=== PATIENT | male | born 1970 | race Caucasian/White ===

== ENCOUNTER 2017-07-24 09:43 | Emergency (ER) | payer SELFPAY ==
[2017-07-24 10:23] LABS: BASOPHILS # (AUTO) 0.1 10^3/uL (0.0-0.1); BASOPHILS % (AUTO) 0.8 %; EOSINOPHILS # (AUTO) 0.1 10^3/uL (0.0-0.7); EOSINOPHILS % (AUTO) 1.7 %; HCT - HEMATOCRIT 44.9 % (42.0-52.0); HGB - HEMOGLOBIN 15.2 g/dL (14.0-18.0); LYMPHOCYTES # (AUTO) 1.9 10^3/uL (1.5-3.5); MEAN CORPUSCULAR HEMOGLOBIN 29.8 pg (27.0-31.0); MEAN CORPUSCULAR HGB CONC 33.8 g/dL (32.0-36.0); MEAN CORPUSCULAR VOLUME 88.3 fL (80.0-94.0); MEAN PLATELET VOLUME 8.1 fL (7.4-11.4); MONOCYTES # (AUTO) 0.7 10^3/uL (0.0-1.0); MONOCYTES % (AUTO) 8.7 %; NEUTROPHILS # (AUTO) 5.1 10^3/uL (1.5-6.6); NEUTROPHILS % (AUTO) 64.8 %; NUCLEATED RED BLOOD CELLS AUTO 0.1 /100WBC; RED BLOOD COUNT 5.08 10^6/uL (4.70-6.10); RED CELL DISTRIBUTION WIDTH 14.5 % (12.0-15.0); UNCORRECTED WHITE BLOOD COUNT 7.9 x10^3/uL; WHITE BLOOD COUNT 7.9 x10^3/uL (4.8-10.8)
[2017-07-24 10:39] LABS: ALBUMIN/GLOBULIN RATIO 1.7 (1.0-2.2); BILIRUBIN,TOTAL 0.6 mg/dL (0.2-1.0); CALCIUM 8.9 mg/dL (8.5-10.3); CREATININE 0.9 mg/dL (0.6-1.2); TOTAL PROTEIN 6.5 g/dL (6.7-8.2)
[2017-07-24] MEDS ORDERED: IOPAMIDOL-300 100 ML VIAL IVP ONE (11:02)
--- NOTE | 2017-07-24 11:27 | CT Preliminary Report ---
Exam: CT Abdomen/Pelvis W/ IMPRESSION: 1. Normal retrocecal appendix. No bowel obstruction. No inguinal hernia or lymphadenopathy. 2. Colonic diverticulosis most notable through the sigmoid, without signs of acute diverticulitis. Li mited colonic detail due to luminal contraction. Liquid and semisolid fecal contents in the distal co myra and rectum. 3. No ductal dilatation postcholecystectomy. 4. A 3.7 cm left renal cyst. 5. Several tiny cysts and/or hemangiomas in the liver. [facility] SITE ID: [id number]
--- NOTE | 2017-07-24 11:30 | CT Report ---
EXAM: CT ABDOMEN AND PELVIS EXAM DATE: 07/24/2017 10:38 AM. CLINICAL HISTORY: RLQ/inguinal pain. COMPARISONS: None. TECHNIQUE: Routine helical CT imaging was performed through the abdomen and pelvis. IV contrast: 100 cc Isovue-300. Enteric contrast: No. Reconstructions: Coronal and sagittal. In accordance with CT protocol optimization, one or more of the following dose reduction techniques w ere utilized for this exam: automated exposure control, adjustment of mA and/or KV based on patient s ize, or use of iterative reconstructive technique. FINDINGS: Lung Bases: Clear. Liver: Few small hypodensities in right and left lobes, largest 1.2 cm in segment 2, likely cysts or hemangiomas. No obviously suspicious lesion. Patent vasculature. Gallbladder/Bile Ducts: No ductal dilatation postcholecystectomy. Spleen: No splenomegaly. Pancreas: Unremarkable. Adrenal Glands: No nodule. Kidneys: No hydronephrosis or stones. A midpole left renal cyst measures 3.7 x 2.9 cm. Normal bilater al parenchymal enhancement. No perinephric fat stranding. Peritoneal Cavity/Bowel: Normal retrocecal appendix. No dilatation of the nonopacified bowel. Limited detail of the variably contracted colon. Colonic diverticulosis, more prominent and moderate through the sigmoid. No pericolonic phlegmon to suggest acute diverticulitis. Moderate liquid and semisolid fecal debris in the rectosigmoid colon without pericolonic infiltration. No free fluid, free air, or abscess. Possible small hiatus hernia. No mesenteric adenopathy. Retroperitoneum: No mass or lymphadenopathy. Pelvic Organs: Unremarkable bladder. Other pelvic organs unremarkable. No inguinal hernia or lymphade nopathy. Vasculature: No aneurysms or other significant abnormality. Bones: No significant abnormality. IMPRESSION: 1. Normal retrocecal appendix. No bowel obstruction. No inguinal hernia or lymphadenopathy. 2. Colonic diverticulosis most notable through the sigmoid, without signs of acute diverticulitis. Li mited colonic detail due to luminal contraction. Liquid and semisolid fecal contents in the distal co myra and rectum. 3. No ductal dilatation postcholecystectomy. 4. A 3.7 cm left renal cyst. 5. Several tiny cysts and/or hemangiomas in the liver. [facility] Referring Provider Line: [phone] SITE ID: [id number]
--- NOTE | 2017-07-24 11:32 | ED Physician Documentation ---
PD HPI ABD PAIN - Stated complaint Stated Complaint: ABD PX - Chief complaint Chief Complaint: Abd Pain - History obtained from History obtained from: Patient - History of Present Illness Timing - onset: How many weeks ago (1.5) Timing - details: Waxing and waning Location: RLQ Radiation: Right flank Worsened by: Moving Associated symptoms: No: Fever, Nausea, Vomiting, Diarrhea, Dysuria, Testicular pain Similar symptoms before: Has not had sx before Review of Systems Constitutional: denies: Fever Nose: denies: Congestion Throat: denies: Sore throat Cardiac: denies: Chest pain / pressure Respiratory: denies: Dyspnea, Cough GI: reports: Abdominal Pain. denies: Nausea, Vomiting, Diarrhea : denies: Dysuria, Frequency, Testicular pain Skin: denies: Rash Musculoskeletal: denies: Back pain, Extremity pain Neurologic: denies: Focal weakness, Numbness, Headache PD PAST MEDICAL HISTORY - Past Medical History Past Medical History: No Cardiovascular: None Respiratory: None Neuro: None Endocrine/Autoimmune: None GI: None : None HEENT: None Psych: None Musculoskeletal: None Derm: None - Past Surgical History Past Surgical History: Yes General: Cholecystectomy, Other (Right inguinal hernia repair) - Allergies Allergies/Adverse Reactions: Allergies Allergy/AdvReac Type Severity Reaction Status Date / Time No Known Drug Allergies Allergy Verified 07/24/17 09:52 - Social History Does the pt smoke?: Yes Smoking Status: Current every day smoker Does the pt drink ETOH?: Yes Does the pt have substance abuse?: No - Immunizations Immunizations are current?: No - POLST Patient has POLST: No PD ED PE NORMAL - Vitals Vital signs reviewed: Yes (borderline hypertension initially.) - General General: Alert and oriented X 3, Well developed/nourished - HEENT HEENT: Atraumatic, EOMI, Pharynx benign - Neck Neck: No adenopathy, No JVD - Cardiac Cardiac: RRR, No murmur - Respiratory Respiratory: No respiratory distress, Clear bilaterally - Abdomen Abdomen: Normal bowel sounds, Soft, Non distended, No organomegaly, Other ( There is mild tenderness to palpation of the right mid to lower abdomen, without rebound tenderness or guarding.) - Back Back: No CVA TTP - Derm Derm: No rash - Extremities Extremities: No edema, No calf tenderness / cord - Neuro Neuro: Alert and oriented X 3, No motor deficit, Normal speech Results - Vitals Vitals: Oxygen O2 Source Room air - Labs Labs: Laboratory Tests 07/24/17 07/24/17 07/24/17 10:15 10:15 11:40 WBC 7.9 RBC 5.08 Hgb 15.2 Hct 44.9 MCV 88.3 MCH 29.8 MCHC 33.8 RDW 14.5 Plt Count 215 MPV 8.1 Neut # 5.1 Lymph # 1.9 Sampson # 0.7 Eos # 0.1 Baso # 0.1 Absolute Nucleated RBC 0.01 Nucleated RBCs 0.1 Sodium 139 Potassium 4.0 Chloride 107 Carbon Dioxide 26 Anion Gap 6.0 BUN 17 Creatinine 0.9 Estimated GFR (MDRD) 90 Glucose 115 H Calcium 8.9 Total Bilirubin 0.6 AST 25 ALT 22 Alkaline Phosphatase 55 Total Protein 6.5 L Albumin 4.1 Globulin 2.4 Albumin/Globulin Ratio 1.7 Lipase 29 Urine Color YELLOW Urine Clarity CLEAR Urine pH 6.5 Ur Specific Platter 1.010 Urine Protein NEGATIVE Urine Glucose (UA) NEGATIVE Urine Ketones NEGATIVE Urine Occult Blood NEGATIVE Urine Nitrite NEGATIVE Urine Bilirubin NEGATIVE Urine Urobilinogen 0.2 (NORMAL) Ur Leukocyte Esterase NEGATIVE Ur Microscopic Review NOT INDICATED Urine Culture Comments NOT INDICATED - Rads (name of study) CT abd/pelvis with IV contrast Radiology: Prelim report reviewed, EMP read contemporaneously, See rad report (1 ) Normal retrocecal appendix. No bowel obstruction. No inguinal hernia or lymphadenopathy. 2) Colonic diverticulosis most notable through the sigmoid, without signs of acute diverticulitis. Limited colonic detail due to luminal contraction. Liquid and semisolid fecal contents in the distal colon and rectum. 3) No ductal dilatation postcholecystectomy. 4) A 3.7 cm left renal cyst. 5) Several tiny cysts and/or hemangiomas of the liver.) PD MEDICAL DECISION MAKING - ED course Complexity details: reviewed results, re-evaluated patient, considered differential, d/w patient, d/w family ED course: The underlying cause of the patient's right-sided abdominal pain is not clearly understood at this time. CBC, chemistry panel, and urinalysis are all completely normal. CT scan of the abdomen and pelvis with IV contrast reveals a normal retrocecal appendix, and no other finding to explain the patient's symptoms. There is an incidental finding of a 3.7 cm left renal cyst, which is not the cause of the patient's current symptoms. I discussed with him and his the results of the workup, the importance of outpatient follow-up, as well as potentially worrisome signs or symptoms that should prompt reevaluation in the emergency department. A copy of his CT scan was burned to a disc and given to him to take to his primary physician. Departure - Departure Disposition: 01 Home, Self Care Clinical Impression: Cyst of left kidney Abdominal pain Qualifiers: Abdominal location: right lower quadrant Qualified Code(s): R10.31 - Right lower quadrant pain Condition: Stable Instructions: ED Abdominal Pain Unkn Cause Comments: Drink plenty of fluids. He can use Tylenol or ibuprofen if needed for discomfort. Follow-up with primary physician. Call for next available appointment. Return to the emergency department if you develop increasing abdominal pain, fever, persistent vomiting, or otherwise worsening symptoms. Discharge Date/Time: 07/24/17 12:53
[2017-07-24 11:50] LABS: BILIRUBIN,URINE NEGATIVE (NEGATIVE); PH,URINE 6.5 PH (5.0-7.5)
[2017-07-24 12:03] LABS: UA CHARGE (STRIP ONLY) YES; UR CULTURE IF IND NOT INDICATED
[2017-07-24 12:54] VITALS: BP 114/86
== END 2017-07-24 12:53 | disposition home or self-care (01) ==
LOC: ED 09:43
DX: R10.31 Right lower quadrant pain (principal); F17.200 Nicotine dependence, unspecified, uncomplicated
CPT/HCPCS: 36415; 74177; 80053; 81003; 83690; 85025; 99283; 99284; Q9967; 81001; 87086

== ENCOUNTER 2025-03-24 00:31 | Observation (INO) ==
--- NOTE | 2025-03-24 00:51 | ED Physician Documentation ---
PD HPI DYSPNEA Stated complaint Stated Complaint: SOA Chief complaint Chief Complaint: Resp History obtained from History obtained from: Patient History of Present Illness Timing - onset: How many days ago (2) Timing - details: Gradual onset Worsened by: Coughing Associated symptoms: Fever (low grade to 100 per patient), Cough and Wheezing; No Hemoptysis, Diaphoresis, Bilateral edema or Unilateral edema Similar symptoms before: Treatment (prn albuterol) Additional information Additional information: Pleasant 54-year-old gentleman with history of mild intermittent asthma. Has been feeling sick for 2 days with cough, wheezing, states that initially "started in my head and outs down to my lungs. Is feeling quite short of breath tonight. Cough has been conductive of some clear and yellow sputum. No hemoptysis. No chest pain. Has had a couple episodes of posttussive emesis otherwise no vomiting or diarrhea. No known sick contacts. No skin rashes. Review of Systems Constitutional Reports: Fever Cardiovascular Reports: shortness of breath with exertion; Denies: Irregular heart rate, chest pain, palpitations, edema, swelling of feet/ankles or Syncope Respiratory Reports: Shortness of breath, Cough, Wheezing, SOB at rest and SOB with exertion Gastrointestinal Denies: Abdominal pain or Nausea Integumentary/Breast Denies: Rash Neurological Denies: Headache Allergic/Immunologic Reports: Wheezing Meds/Allgy Allergies Allergies Allergy/AdvReac Type Severity Reaction Status Date / Time No Known Drug Allergies Allergy Verified 07/24/17 09:52 [facility] Active Problems All Active Problems (Updated 03/24/25 @ 02:52 by Chris Villa MD) Upper respiratory tract infection (Acute) Respiratory failure (Acute) Asthma (Acute) Medical History Medical History (Updated 03/24/25 @ 02:52 by Chris Villa MD) Asthma Surgical History Surgical History (Updated 03/24/25 @ 00:46 by Piper Plascencia RN) History of hernia repair History of cholecystectomy Social History Social History (Updated 03/24/25 @ 00:46 by Piper Plascencia RN) Smoking Status: Current every day smoker How many cigarettes a day do you smoke? (20 cigarettes=1 Pk): 20 Relationship: Do you feel safe in your home environment?: Yes Suffered physical, verbal, emotional, or financial abuse?: No History of Abuse: No Frequency: Daily Substance Use: denies use POLST Patient has POLST: No Exam Exam Vital Signs: Vital Signs x48h Temp Pulse Resp BP Pulse Ox O2 Flow Rate 03/24/25 05:00 114 H 22 118/67 96 4 03/24/25 04:30 124 H 22 101/83 94 4 03/24/25 04:00 110 H 22 105/77 96 03/24/25 03:38 115 H 20 4 03/24/25 03:02 115 H 28 H 131/85 H 94 4 03/24/25 02:45 95 4 03/24/25 02:44 90 L 1 03/24/25 02:10 95 1 03/24/25 02:09 78 L 1 03/24/25 02:04 115 H 22 98 1 03/24/25 01:43 119 H 24 152/89 H 95 1 03/24/25 01:37 124 H 30 H 126/82 88 L 03/24/25 01:15 115 H 20 99/75 97 6 03/24/25 01:00 113 H 20 101/73 94 2 03/24/25 00:59 119 H 20 2 03/24/25 00:56 106 H 20 92/68 94 2 03/24/25 00:50 88 L 03/24/25 00:48 2 03/24/25 00:41 36.7 C 118 H 26 H 158/81 H 93 Awake and alert, mild dyspnea HENMT normocephalic Eyes PERRL Neck/C-Spine visual inspection normal Respiratory no rales and no retractions Prolonged expiratory phase. Diffuse wheezes in all [place]. No rhonchi Cardiovascular normal heart rate noted, regular rhythm noted, no gallop and no murmur Gastrointestinal abdomen soft to palpation, nontender to palpation and nondistended Extremities normal to inspection Neurology no focal motor deficit noted Psychiatry Mental Status Exam documented in the separate MSE Skin skin color normal and no rash Results Vitals Vitals: Vital Signs - 24 hr 03/24/25 00:41 03/24/25 00:48 03/24/25 00:50 Temperature 36.7 C Temperature Source Temporal Artery Scan Pulse Rate 118 H Respiratory Rate 26 H Blood Pressure 158/81 H O2 Saturation 93 88 L Oxygen Delivery Method Nasal Cannula O2 Source Room air Room air If not protocol: Oxygen Flow, liters/minute 2 Pain Intensity 0 03/24/25 00:56 03/24/25 00:59 04/25/25 01:00 Temperature Temperature Source Pulse Rate 106 H 119 H 113 H Respiratory Rate 20 20 20 Blood Pressure 92/68 101/73 O2 Saturation 94 94 Oxygen Delivery Method O2 Source Nasal cannula Nasal cannula Nasal cannula If not protocol: Oxygen Flow, liters/minute 2 2 2 Pain Intensity 03/24/25 01:15 03/24/25 01:37 03/24/25 01:43 Temperature Temperature Source Pulse Rate 115 H 124 H 119 H Respiratory Rate 20 30 H 24 Blood Pressure 99/75 126/82 152/89 H O2 Saturation 97 88 L 95 Oxygen Delivery Method O2 Source Room air Nasal cannula If not protocol: Oxygen Flow, liters/minute 6 1 Pain Intensity 03/24/25 02:04 03/24/25 02:09 03/24/25 02:10 Temperature Temperature Source Pulse Rate 115 H Respiratory Rate 22 Blood Pressure O2 Saturation 98 78 L 95 Oxygen Delivery Method O2 Source Nasal cannula Nasal cannula Nasal cannula If not protocol: Oxygen Flow, liters/minute 1 1 1 Pain Intensity 03/24/25 02:44 03/24/25 02:45 03/24/25 03:02 Temperature Temperature Source Pulse Rate 115 H Respiratory Rate 28 H Blood Pressure 131/85 H O2 Saturation 90 L 95 94 Oxygen Delivery Method O2 Source Nasal cannula Nasal cannula Nasal cannula If not protocol: Oxygen Flow, liters/minute 1 4 4 Pain Intensity 03/24/25 03:38 03/24/25 04:00 03/24/25 04:30 Temperature Temperature Source Pulse Rate 115 H 110 H 124 H Respiratory Rate 20 22 22 Blood Pressure 105/77 101/83 O2 Saturation 96 94 Oxygen Delivery Method O2 Source Nasal cannula Nasal cannula If not protocol: Oxygen Flow, liters/minute 4 4 Pain Intensity 03/24/25 05:00 Temperature Temperature Source Pulse Rate 114 H Respiratory Rate 22 Blood Pressure 118/67 O2 Saturation 96 Oxygen Delivery Method O2 Source Nasal cannula If not protocol: Oxygen Flow, liters/minute 4 Pain Intensity Oxygen O2 Source Nasal cannula EKG (time done) 0037: EKG releavant findings:: EKG personally interpreted by author of this note. Relevant findings are: Rate: Rate (enter#) Rhythm: Sinus tachycardia Stanley: Normal Intervals: Normal TN QRS: QRS normal Ischemia: Normal ST segments Compare to prior EKG: Old EKG unavailable Computer interpretation: Agree with computer Labs Labs: Laboratory Tests 03/24/25 03/24/25 00:40 00:49 WBC 15.3 H RBC 4.88 Hgb 14.3 Hct 43.8 MCV 89.8 MCH 29.3 MCHC 32.6 RDW 14.2 Plt Count 269 MPV 10.1 Neut # (Auto) 13.3 H Lymph # (Auto) 1.0 L [place] # (Auto) 1.0 Eos # (Auto) 0.0 Baso # (Auto) 0.0 Absolute Nucleated RBC 0.00 Nucleated RBC % 0.0 Sodium 137 Potassium 3.6 Chloride 101 Carbon Dioxide 28 Anion Gap 8.0 BUN 11 Creatinine 1.0 Estimated GFR (MDRD) 78 L Glucose 122 H Calcium 9.1 Troponin I High Sens 5.1 Nasal Influenza B PCR NOT DETECTED Nasal Influenza A PCR NOT DETECTED Nasal RSV (PCR) NOT DETECTED Nasal SARS-CoV-2 (PCR) NOT DETECTED PD Medical Decision Making ED course ED course: 0145: Patient is little bit tachycardic after nebs. Significantly improved aeration and decreased wheezing. Now satting 94% on room air. Feels a little bit better. 0325 Wheezing and tight again, increasing oxygen requirement. Additional nebs ordered. Medical decision making: Patient presents with acute dyspnea wheezing shortness of breath and hypoxic respiratory failure. He is requiring small amount of supplemental oxygen which is certainly new for him. He is on a inhaler long- term but not long-term steroids. I think most likely this is some underlying significant asthma which has been undertreated in the past. Appears to be exacerbated by either environmental allergies or viral URI. No evidence of pneumonia, pneumothorax, or heart failure. Because of his persistent oxygen requirement he will require admission. No beds available at this time, patient is signed out to the [facility] provider awaiting bed availability and ongoing treatment. Hopefully within 12 to 18 hours of receiving steroids these will start to have a significant effect and likely his wheezing will decrease and oxygenation will improve. Critical Care Critical Care Provided: Yes Time(min): 50 Comments: Time spend managing severe asthma with acute hypoxic resp failure requiring repeated evaluations and medication management Time Includes: Direct patient care, Reassess patient and See progress note Data interpretation: Labs, Pulse ox, ABG and CXR Discharge Plan Discharge Clinical Impression: Asthma, Respiratory failure, Upper respiratory tract infection Print Language: [place] Stand Alone Forms: PCP List Asthma Results (Adult) Results RESP.RESAS: Chest X-Ray
[2025-03-24 00:58] LABS: BASOPHILS % (AUTO) 0.2 %; EOSINOPHILS % (AUTO) 0.1 %; HCT - HEMATOCRIT 43.8 % (42.0-52.0); HGB - HEMOGLOBIN 14.3 g/dL (14.0-18.0); LYMPHOCYTES % (AUTO) 6.3 %; MEAN CORPUSCULAR HEMOGLOBIN 29.3 pg (27.0-31.0); MEAN CORPUSCULAR HGB CONC 32.6 g/dL (32.0-36.0); MEAN CORPUSCULAR VOLUME 89.8 fL (80.0-94.0); MEAN PLATELET VOLUME 10.1 fL (7.4-11.4); MONOCYTES % (AUTO) 6.4 %; NEUTROPHILS # (AUTO) 13.3 10^3/uL (1.5-6.6); NEUTROPHILS % (AUTO) 86.6 %; PLT - PLATELET COUNT 269 10^3/uL (130-450); RED BLOOD COUNT 4.88 10^6/uL (4.70-6.10); RED CELL DISTRIBUTION WIDTH 14.2 % (12.0-15.0); WHITE BLOOD COUNT 15.3 x10^3/uL (4.8-10.8)
[2025-03-24] MEDS: IPRATROPIUM/ALBUTEROL 3 ML NEB INH STA (00:59)
[2025-03-24] MEDS: ALBUTEROL NEB 2.5 MG/3 ML INH STA (00:59)
--- NOTE | 2025-03-24 00:59 | XRAY Report ---
PROCEDURE: XR Chest 1V INDICATIONS: SOB, wheeze, cough TECHNIQUE: One view of the chest was acquired. COMPARISON: None. FINDINGS: Surgical changes and devices: None. Lungs and pleura: Peribronchial cuffing. No effusions or pneumothorax. No consolidation. Mediastinum: Mediastinal contours appear normal. Heart size is normal. Bones and chest wall: No suspicious bony lesions. Overlying soft tissues appear unremarkable. IMPRESSION: Peribronchial cuffing, suggestive of infectious or inflammatory bronchitis. Reviewed by: Jaime Hooker MD on 03/24/2025 12:58 AM PDT Approved by: Jaime Hooker MD on 03/24/2025 12:58 AM PDT Station ID: [id number]
[2025-03-24] MEDS: predniSONE 20 MG TABLET PO STA (01:05)
[2025-03-24 01:12] LABS: CALCIUM 9.1 mg/dL (8.5-10.3); POTASSIUM 3.6 mmol/L (3.5-4.5)
[2025-03-24] MEDS: BUDESONIDE 0.5 MG/2 ML NEB INH STA (01:17)
[2025-03-24] MEDS: SODIUM CHLORIDE 0.9% 1,000 ML IV ONE (01:31)
[2025-03-24 01:54] LABS: INFLUENZA A- RESP PCR PANEL NOT DETECTED; INFLUENZA B - RESP PCR PANEL NOT DETECTED; RSV- RESP PCR PANEL NOT DETECTED; SARS-CoV-2 -RESP PCR PANEL NOT DETECTED
[2025-03-24] MEDS: MAGNESIUM SULFATE 2 GRAM 2 GM/50 ML BAG IV ONE (02:38)
[2025-03-24] MEDS: ALBUTEROL NEB 2.5 MG/3 ML INH SCH ×2 (03:38→09:35)
[2025-03-24] MEDS: ALPRAZolam 0.25 MG TABLET PO STA (05:30)
[2025-03-24] MEDS ORDERED: BUDESONIDE 0.5 MG/2 ML NEB INH SCH (07:00)
[2025-03-24] MEDS ORDERED: ALBUTEROL NEB 2.5 MG/3 ML INH SCH (09:00)
[2025-03-24] MEDS: dexAMETHasone 4 MG TABLET PO STA (09:16)
--- NOTE | 2025-03-24 15:26 | ED Physician Documentation ---
ED Addendum Addendum Addendum: Hide assumed care on the patient after change of shift. We have been checking in on him periodically through the morning and into the afternoon. He is breathing has been fairly unlabored. However his O2 sats are still running just under 90% on room air. Hope then he would be improving enough for discharge but he is not normally on oxygen and typically has reasonably controlled asthma. He does have a flulike illness. His respiratory panel was limited to COVID flu and RSV that were negative. Chest x-ray does not show any signs of pneumonia. However he still has moderate wheezing. He is had several nebulizers. He was given nebulizer treatment every 4 hours at change of shift and again just a little bit ago around lunchtime and is due for another in the next hour or so. He had been getting steroids with a repeat dose this morning. Given his still persisting hypoxia and wheezing, it was feeling prudent to have the patient in the hospital for further care. I talked with the hospitalist and we are awaiting bed availability. The patient is still boarding here in the ER at this point and may end up finishing his course here if he improves again or still better through the day or into tomorrow. Since this is a an acute illness with hypoxia, a felt it appropriate to have him here working on the problem rather than just trying to set up home oxygen. He does not have nebulizers at [facility]. At this point we would anticipate observation in the hospital or here in the ER with continued steroids, nebulizers, oxygen and p.o. hydration. Discharge Plan Discharge Patient Disposition: ED Place in Observation Clinical Impression: Asthma, Respiratory failure, Upper respiratory tract infection Prescriptions: No Action No Known Home Medications Print Language: [place] Stand Alone Forms: PCP List
--- NOTE | 2025-03-24 16:27 | HISTORY & PHYSICAL EXAMINATION ---
Chief Complaint Chief Complaint Chief Complaint: Dyspnea History of Present Illness Admitted From Admitted From:: Home History Obtained From History obtained from: Patient interview History of Present Illness HPI Comment/Other: 54-year-old male H significant for asthma only on rescue albuterol presents to the ED with shortness of breath for the past 2 days as well as low-grade fever and productive cough. He was seen early this morning in the ER, and held there in observation due to lack of bed availability. In the ER, chest x-ray was performed which showed peribronchial cuffing suggesting infectious versus inflammatory bronchitis. He was given multiple doses of steroids and nebulizers. He still requires oxygen and becomes dyspneic with activity, so hospitalist was contacted for observation for acute on chronic hypoxic respiratory failure secondary to acute exacerbation of asthma Meds/Allgy Home Medications Ambulatory Orders Medication Instructions Recorded Confirmed No Known Home Medications 03/24/25 03/24/25 Allergies Allergies Allergy/AdvReac Type Severity Reaction Status Date / Time No Known Drug Allergies Allergy Verified 07/24/17 09:52 [facility] Active Problems All Active Problems (Updated 03/24/25 @ 02:52 by Chris Villa MD) Upper respiratory tract infection (Acute) Respiratory failure (Acute) Asthma (Acute) Medical History Medical History (Updated 03/24/25 @ 02:52 by Chris Villa MD) Asthma Surgical History Surgical History (Updated 03/24/25 @ 00:46 by Piper Plascencia RN) History of hernia repair History of cholecystectomy Social History Social History (Updated 03/24/25 @ 00:46 by Piper Plascencia RN) Smoking Status: Current every day smoker How many cigarettes a day do you smoke? (20 cigarettes=1 Pk): 20 Relationship: Do you feel safe in your home environment?: Yes Suffered physical, verbal, emotional, or financial abuse?: No History of Abuse: No Frequency: Daily Substance Use: denies use POLST Patient has POLST: No Review of Systems Status of ROS: 10 or more systems reviewed and unremarkable except as noted in history and below Constitutional Reports: Fever and Chills Cardiovascular Reports: shortness of breath with exertion; Denies: chest pain or palpitations Respiratory Reports: Shortness of breath, Cough and Sputum production Gastrointestinal Denies: Abdominal pain Genitourinary Denies: Painful urination Exam Exam Vital Signs: Vital Signs x48h Pulse Resp BP Pulse Ox O2 Flow Rate 03/24/25 14:13 93 21 117/74 90 L 1 03/24/25 14:01 88 L 1 03/24/25 13:23 88 26 H 88 L 1 03/24/25 12:05 94 24 99/73 98 0.5 03/24/25 10:00 90 L 1 03/24/25 09:36 114 H 16 03/24/25 09:27 3 03/24/25 09:16 95 20 107/92 H 94 3 Constitutional normal general appearance and no apparent distress HENMT normocephalic and head/scalp atraumatic Eyes PERRL Neck/C-Spine visual inspection normal Lymph no lymphadenopathy noted Chest inspection of chest normal Respiratory breath sounds equal bilaterally and wheezing noted (expiratory wheezes) Cardiovascular normal heart rate noted and regular rhythm noted Gastrointestinal abdomen normal to inspection and abdomen soft to palpation Extremities normal to inspection Neurology GCS 15 Psychiatry oriented x3 Skin skin color normal Conclusion/Plan Problem List (1) Respiratory failure: Plan: Acute on chronic hypoxic respiratory failure secondary to asthma exacerbation O2 as needed Manage asthma and possible viral infection as below (2) Asthma: Plan: On rescue albuterol only at home Does not have a PCP, will need 1 on discharge for management of his asthma DuoNeb RT 4 times daily Pulmicort twice daily Prednisone 40 mg p.o. daily Will need to discharge with an inhaled steroid (3) Upper respiratory tract infection: Plan: 4 Plex was negative in the ER Ordering respiratory viral panel as I still suspect that he has some form of viral respiratory illness Plan Placed in observation as I anticipate a rapid turnaround Full code He names his stepmother is his surrogate decision-maker Lab Results Lab results reviewed: Yes 03/24/25 00:40 03/24/25 00:40 Diagnostic Imaging Results Diagnostic Imaging Results: positive Final report reviewed Core Measures Anticipated LOS I expect patient to be DC'd or transferred within 96 hours.: Yes DVT/VTE - Prophylaxis VTE/DVT Prophylaxis med ordered at admit?: Yes
[2025-03-24] MEDS ORDERED: ONDANSETRON 4 MG/2 ML VIAL IVP PRN (16:39)
[2025-03-24] MEDS ORDERED: ONDANSETRON ODT 4 MG TABLET TL PRN (16:39)
[2025-03-24] MEDS ORDERED: SODIUM CHLORIDE FLUSH 0.9% 10 ML SYRINGE IVP PRN (16:39)
[2025-03-24] MEDS ORDERED: ACETAMINOPHEN 325 MG TABLET PO PRN (16:39)
[2025-03-24] MEDS ORDERED: ALBUTEROL NEB 2.5 MG/3 ML INH PRN (17:08)
[2025-03-24 19:07] LABS: B. PARAPERTUSSIS- RESP PCR PAN NOT DETECTED; B. PERTUSSIS- RESP PCR PANEL NOT DETECTED; C. PNEUMONIAE- RESP PCR PANEL NOT DETECTED; CORONAVIRUS 229E-RESP PCR NOT DETECTED; CORONAVIRUS HKU1-RESP PCR NOT DETECTED; CORONAVIRUS NL63-RESP PCR NOT DETECTED; CORONAVIRUS OC43-RESP PCR NOT DETECTED; HUMAN METAPNEUMOVIRUS NOT DETECTED; INFLUENZA A- RESP PCR PANEL NOT DETECTED; INFLUENZA B - RESP PCR PANEL NOT DETECTED; M. PNEUMONIAE- RESP PCR PANEL NOT DETECTED; PARAINFLUENZA VIRUS 1 NOT DETECTED; PARAINFLUENZA VIRUS 2 NOT DETECTED; PARAINFLUENZA VIRUS 4 NOT DETECTED; RHINOVIRUS/ENTEROVIRUS DETECTED; RSV- RESP PCR PANEL NOT DETECTED; SARS-CoV-2 -RESP PCR PANEL NOT DETECTED
[2025-03-24] MEDS: SODIUM CHLORIDE FLUSH 0.9% 10 ML SYRINGE IVP SCH (22:09)
[2025-03-24] MEDS: BUDESONIDE 0.5 MG/2 ML NEB INH SCH (22:20)
[2025-03-24] MEDS: IPRATROPIUM/ALBUTEROL 3 ML NEB INH SCH (22:20)
[2025-03-25 05:35] LABS: BASOPHILS % (AUTO) 0.1 %; EOSINOPHILS % (AUTO) 0.1 %; HCT - HEMATOCRIT 42.2 % (42.0-52.0); HGB - HEMOGLOBIN 13.8 g/dL (14.0-18.0); LYMPHOCYTES % (AUTO) 7.2 %; MEAN CORPUSCULAR HEMOGLOBIN 29.1 pg (27.0-31.0); MEAN CORPUSCULAR HGB CONC 32.7 g/dL (32.0-36.0); MEAN PLATELET VOLUME 10.5 fL (7.4-11.4); MONOCYTES # (AUTO) 1.3 10^3/uL (0.0-1.0); MONOCYTES % (AUTO) 9.3 %; NEUTROPHILS # (AUTO) 11.8 10^3/uL (1.5-6.6); NEUTROPHILS % (AUTO) 82.9 %; PLT - PLATELET COUNT 260 10^3/uL (130-450); RED BLOOD COUNT 4.74 10^6/uL (4.70-6.10); RED CELL DISTRIBUTION WIDTH 14.5 % (12.0-15.0); WHITE BLOOD COUNT 14.3 x10^3/uL (4.8-10.8)
[2025-03-25 05:51] LABS: CALCIUM 8.9 mg/dL (8.5-10.3); CREATININE 0.8 mg/dL (0.6-1.3); POTASSIUM 4.3 mmol/L (3.5-4.5)
[2025-03-25] MEDS: predniSONE 20 MG TABLET PO SCH (08:21)
[2025-03-25] MEDS: ENOXAPARIN 40 MG/0.4 ML SYRINGE SUBQ SCH (08:21)
[2025-03-25] MEDS: AZITHROMYCIN 250 MG TABLET PO SCH (13:15)
--- NOTE | 2025-03-25 15:28 | PROVIDER PROGRESS NOTE ---
Subjective Prog Note Date Prog Note Date: 03/25/25 Subjective Pt reports feeling: Improved Current Medications Current Medications Current Medications: Current Medications Generic Name Dose Route Start Last Admin Trade Name Freq PRN Reason Stop Dose Admin Acetaminophen 650 mg 03/24/25 16:39 Acetaminophen 325 Mg Tablet PO Q4HR PRN Pain 1 to 4, or Fever Albuterol 2.5 mg 03/24/25 17:08 Albuterol Neb 2.5 Mg/3 Ml INH Q4HR PRN Wheezing Albuterol/Ipratropium 3 ml 03/24/25 19:00 03/25/25 15:24 Ipratropium/Albuterol 3 Ml Neb INH 3 ml RTQID LITA Administration Azithromycin 500 mg 03/25/25 13:00 03/25/25 13:15 Azithromycin 250 Mg Tablet PO 500 mg DAILY LITA Administration Budesonide 0.5 mg 03/24/25 19:00 03/25/25 07:48 Budesonide 0.5 Mg/2 Ml Neb INH 0.5 mg RTBID LITA Administration Enoxaparin Sodium 40 mg 03/25/25 09:00 03/25/25 08:21 Enoxaparin 40 Mg/0.4 Ml Syringe SUBQ 40 mg DAILY LITA Administration Ondansetron HCl 4 mg 03/24/25 16:39 Ondansetron Odt 4 Mg Tablet TL Q6HR PRN Nausea / Vomiting Ondansetron HCl 4 mg 03/24/25 16:39 Ondansetron 4 Mg/2 Ml Vial IVP Q6HR PRN Nausea / Vomiting Prednisone 40 mg 03/25/25 08:00 03/25/25 08:21 Prednisone 20 Mg Tablet PO 40 mg DAILYWM LITA Administration Sodium Chloride 10 ml 03/24/25 16:39 Sodium Chloride Flush 0.9% 10 Ml Syringe IVP PRN PRN NEEDED PER PROVIDER ORDERS Sodium Chloride 10 ml 03/24/25 17:00 03/25/25 08:23 Sodium Chloride Flush 0.9% 10 Ml Syringe IVP 10 ml 0100,0900,1700 LITA Administration Objective Vital Signs/Intake & Output Reviewed Vital Signs: Yes Vital Signs: Vital Signs x48h Temp Pulse Pulse Resp BP Pulse Ox O2 Flow Rate 03/25/25 13:00 36.4 C L 94 11 L 121/84 96 2 03/25/25 12:40 91 19 2 04/26/25 09:00 36.7 C 87 11 L 108/72 92 1 03/25/25 07:50 83 18 03/25/25 07:45 1 Intake & Output: Intake & Output 03/22/25 03/23/25 03/24/25 03/25/25 23:59 23:59 23:59 23:59 Intake Total 1590 / 1590 600 / 600 Output Total 300 / 300 Balance 1290 / 1290 600 / 600 Weight (kg) 115 kg Objective General Appearance: positive No acute distress and Alert Eyes Bilateral: positive Normal inspection and PERRL ENT: positive ENT inspection nml Neck: positive Nml inspection Respiratory: positive Chest non-tender and No respiratory distress Cardiovascular: positive Regular rate & rhythm Abdomen: positive Non-tender Skin: positive Color nml Extremities: positive Non-tender Neurologic/Psychiatric: positive Oriented x3 Lab Results 03/25/25 04:54 03/25/25 04:54 Other Labs: Lab Results x24hrs 03/25/25 03/24/25 Range/Units 04:54 18:02 WBC 14.3 H (4.8-10.8) x10^3/uL RBC 4.74 (4.70-6.10) 10^6/uL Hgb 13.8 L (14.0-18.0) g/dL Hct 42.2 (42.0-52.0) % MCV 89.0 (80.0-94.0) fL MCH 29.1 (27.0-31.0) pg MCHC 32.7 (32.0-36.0) g/dL RDW 14.5 (12.0-15.0) % Plt Count 260 (130-450) 10^3/uL MPV 10.5 (7.4-11.4) fL Neut # (Auto) 11.8 H (1.5-6.6) 10^3/uL Lymph # (Auto) 1.0 L (1.5-3.5) 10^3/uL [place] # (Auto) 1.3 H (0.0-1.0) 10^3/uL Eos # (Auto) 0.0 (0.0-0.7) 10^3/uL Baso # (Auto) 0.0 (0.0-0.1) 10^3/uL Absolute Nucleated RBC 0.00 x10^3/uL Nucleated RBC % 0.0 /100WBC Sodium 140 (135-145) mmol/L Potassium 4.3 (3.5-4.5) mmol/L Chloride 106 (101-111) mmol/L Carbon Dioxide 28 (21-32) mmol/L Anion Gap 6.0 (6-13) BUN 17 (6-20) mg/dL Creatinine 0.8 (0.6-1.3) mg/dL Estimated GFR (MDRD) 101 (>89) Glucose 130 H (74-104) mg/dL Calcium 8.9 (8.5-10.3) mg/dL Nasal Adenovirus (PCR) NOT DETECTED Nasal B. parapertussis DNA (PCR) NOT DETECTED Nasal Coronavir 229E PCR NOT DETECTED Nasal Coronavir HKU1 PCR NOT DETECTED Nasal Coronavir NL63 PCR NOT DETECTED Nasal Coronavir OC43 PCR NOT DETECTED Nasal Enterovir/Rhinovir PCR DETECTED A Nasal Influenza B PCR NOT DETECTED Nasal Influenza A PCR NOT DETECTED Nasal Parainfluen 1 PCR NOT DETECTED Nasal Parainfluen 2 PCR NOT DETECTED Nasal Parainfluen 3 PCR NOT DETECTED Nasal Parainfluen 4 PCR NOT DETECTED Nasal RSV (PCR) NOT DETECTED Nasal B.pertussis DNA PCR NOT DETECTED Nasal C.pneumoniae (PCR) NOT DETECTED Y[place]a Human Metapneumo PCR NOT DETECTED Nasal M.pneumoniae (PCR) NOT DETECTED Nasal SARS-CoV-2 (PCR) NOT DETECTED Assessment/Plan Problem List (1) Respiratory failure: Impression: Acute on chronic hypoxic respiratory failure secondary to asthma exacerbation O2 as needed Manage asthma and viral infection as below (2) Asthma: Impression: Home regimen includes only rescue albuterol No PCP, will need 1 for further management of his asthma Continue: DuoNeb RT 4 times daily Pulmicort twice daily Prednisone 40 mg p.o. daily Will need ICS at discharge I started him on azithromycin today for its anti-inflammatory properties (3) Upper respiratory tract infection: Impression: Respiratory PCR positive for rhinovirus Steroids, nebs, azithromycin as above
--- NOTE | 2025-03-25 15:58 | Discharge Summary ---
Discharge Summary Admit Date: 03/24/25 Discharge Date: 03/25/25 Discharging Provider: Jose Enrique Miranda NP Primary Care Provider: None Code Status: Attempt Resuscitation DIAGNOSES Admission Diagnoses: Acute on chronic hypoxic respiratory failure Asthma exacerbation URI Discharge Diagnoses with Status of Each Condition: Acute on chronic hypoxic respiratory failureoff oxygen now Asthma exacerbationdischarging on steroids URIpositive for rhinovirus, discharging on steroids HPI History of Present Illness: 54-year-old male H significant for asthma only on rescue albuterol presents to the ED with shortness of breath for the past 2 days as well as low-grade fever and productive cough. He was seen early this morning in the ER, and held there in observation due to lack of bed availability. In the ER, chest x-ray was performed which showed peribronchial cuffing suggesting infectious versus inflammatory bronchitis. He was given multiple doses of steroids and nebulizers. He still requires oxygen and becomes dyspneic with activity, so hospitalist was contacted for observation for acute on chronic hypoxic respiratory failure secondary to acute exacerbation of asthma HOSPITAL COURSE Hospital Course: Patient was brought into the hospital and placed in observation. He was started on prednisone burst with scheduled DuoNebs and ICS. Today, he is off oxygen and feeling much better. He is looking forward to going home, so I ordered oxygen desaturation study which he passed. I am discharging him home with his family to finish a course of steroids and azithromycin for its anti-inflammatory properties. I also ordered budesonide inhaler that he can continue until directed otherwise by his PCP. I also ordered a refill of his albuterol rescue inhaler ALLERGIES Allergies Allergy/AdvReac Type Severity Reaction Status Date / Time No Known Drug Allergies Allergy Verified 07/24/17 09:52 MEDICATIONS Ambulatory Orders Medication Instructions Recorded Confirmed albuterol sulfate 90 mcg/actuation 1 inh inhalation QID PRN shortness 03/25/25 aerosol inhaler (Ventolin HFA) of breath or wheezing #8.5 grams azithromycin 250 mg tablet 500 mg (2 x 250 mg) PO DAILY 2 03/25/25 days #4 tabs budesonide 90 mcg/actuation breath 1 inh inhalation BID #1 ea 03/25/25 activated powder inhaler prednisone 20 mg tablet 40 mg (2 x 20 mg) PO DAILYWM 3 03/25/25 days #6 tabs PHYSICAL EXAM AT DISCHARGE Vital Signs: Vital Signs x48h Temp Pulse Pulse Resp BP Pulse Ox O2 Flow Rate 03/25/25 15:43 99 03/25/25 15:25 88 18 03/25/25 15:10 36.7 C 90 20 132/91 H 92 1 03/25/25 13:00 36.4 C L 94 11 L 121/84 96 2 03/25/25 12:40 91 19 2 General Appearance: positive No acute distress and Alert Eyes Bilateral: positive Normal inspection and PERRL ENT: positive ENT inspection nml Neck: positive Nml inspection Respiratory: positive Chest non-tender and Wheezes (Much improved) Cardiovascular: positive Regular rate & rhythm Peripheral Pulses: positive 2+ Abdomen: positive Non-tender Skin: positive Color nml Extremities: positive Non-tender Neurologic/Psychiatric: positive Oriented x3 LABS 03/25/25 04:54 03/25/25 04:54 FOLLOW UP Follow Up: He has been instructed to establish himself with PCP TIME SPENT Time Spent in Discharge (Minutes): 40 Discharge Plan Discharge Patient Disposition: Home, Self Care Prescriptions: New azithromycin 250 mg Tablet 500 mg PO DAILY 2 Days Qty: 4 0RF prednisone 20 mg Tablet 40 mg PO DAILYWM 3 Days Qty: 6 0RF albuterol sulfate [Ventolin HFA] 90 mcg/actuation HFA aerosol inhaler 1 inh inhalation QID PRN (Reason: shortness of breath or wheezing) Qty: 8.5 0RF budesonide 90 mcg/actuation aerosol powdr breath activated 1 inh inhalation BID Qty: 1 2RF Diet: Regular Interventions: Belongings Inventory Last Done: 03/24/25 19:39 Discharge Last Done: 03/25/25 16:53 Discharge Checklist - Nursing Last Done: 03/25/25 16:53 Health Concerns: You came into the hospital with an exacerbation of asthma. This was brought on by rhinovirus. Your respiratory status has improved, so I am sending you home. You underwent desaturation study and did not require any additional oxygen. I am sending you with a prescription for an oral steroid called prednisone. I want you to take 2 tabs every day until the bottle is empty. I am also writing for azithromycin for its anti-inflammatory properties. Take 2 tabs daily until the bottle is empty. I ordered another albuterol inhaler for you to use as needed for shortness of breath and wheezing. I have another inhaler that I would like for you to start called budesonide. It is similar to the breathing treatments you were receiving in the hospital. I would like for you to take it as directed twice daily. Please seek medical help if you have worsening shortness of breath. Please establish yourself with a primary care provider for ongoing management of your asthma. Print Language: Pakistani Patient Instructions: Budesonide inhalation powder Stand Alone Forms: PCP List
[2025-03-25 15:59] VITALS: BP 132/91; TEMP 98.1; O2SAT 92
== END 2025-03-25 16:50 | disposition home or self-care (01) ==
LOC: ED 00:31 → MS2 00:31
PROVIDERS: ADMIT Nurse Practitioner Acute Care; ATTEND Nurse Practitioner Acute Care
DX: B97.89 Other viral agents as the cause of diseases classified elsewhere; J06.9 Acute upper respiratory infection, unspecified; J96.21 Acute and chronic respiratory failure with hypoxia; J45.21 Mild intermittent asthma with (acute) exacerbation; F17.210 Nicotine dependence, cigarettes, uncomplicated